=== PATIENT | male | born 1965 | race Caucasian/White ===

== ENCOUNTER → 2018-05-16 15:58 | Outpatient (CLI) | payer OTHER, SELFPAY ==
--- NOTE | 2018-05-16 | DI.RAD.S_ITS ---
PROCEDURE: XR FOOT RT MIN 3V INDICATIONS: PAIN IN RIGHT ANKLE AND RIGHT FOOT TECHNIQUE: 3 views of the foot were acquired. COMPARISON: None. FINDINGS: Bones: No fractures or dislocations. No suspicious bony lesions. Soft tissues: No tibiotalar joint effusion. Achilles tendon appears normal. IMPRESSION: No acute fracture. No osseous lesion. If symptoms and/or clinical suspicion for pathology persist, further assessment with repeat, or advanced imaging (e.g., CT, MRI, or bone scan) may be helpful for further assessment. Dictated by: Julieta Sanchez M.D. on 05/16/2018 at 16:35 Approved by: Julieta Sanchez M.D. on 05/16/2018 at 16:36
--- NOTE | 2018-05-16 | DI.RAD.S_ITS ---
PROCEDURE: XR ANKLE RT MIN 3V INDICATIONS: PAIN IN RIGHT ANKLE AND RIGHT FOOT TECHNIQUE: 3 views of the ankle were acquired. COMPARISON: None. FINDINGS: Bones: No fractures or dislocations. Ankle mortise is normally aligned. No suspicious bony lesions. Soft tissues: No tibiotalar joint effusion. Achilles tendon appears normal. IMPRESSION: No acute fracture. No osseous lesion. If symptoms and/or clinical suspicion for pathology persist, further assessment with repeat, or advanced imaging (e.g., CT, MRI, or bone scan) may be helpful for further assessment. Dictated by: Julieta Sanchez M.D. on 05/16/2018 at 16:35 Approved by: Julieta Sanchez M.D. on 05/16/2018 at 16:35
== END ==
PROVIDERS: Family Provider Internal Medicine; Visit Provider Internal Medicine
DX: M25.571 Pain in right ankle and joints of right foot (principal)
CPT/HCPCS: 73610; 73630

== ENCOUNTER → 2018-05-23 14:31 | Outpatient (CLI) | payer OTHER, SELFPAY ==
--- NOTE | 2018-05-23 | DI.CT.S_ITS ---
PROCEDURE: CT LE RT WO CON INDICATIONS: RIGHT ANKLE PAIN TECHNIQUE: Noncontrast 1-1.5 mm axial sections acquired from above the tibiotalar joint to the bottom of the calcaneus, with coronal and sagittal reformats. COMPARISON: [facility], CR, XR FOOT RT MIN 3V, 05/16/2018, 15:44. FINDINGS: Image quality: Excellent. Small sub-5 mm calcific densities visualized between the cuboid and navicular image 201 series 2, image 174 series 4 raising the possibility of small cortical fracture fragments although the exact donor site it is unclear. Elsewhere, no acute fracture or malalignment is seen. There is probable subcentimeter intraosseous cystic change within the midfoot, degenerative. The talar dome is grossly intact. Mild spurring of the tibiotalar joint. The ankle mortise is maintained. Circumferential hindfoot subcutaneous edema. Chronic corticated ossicle projecting along the medial hindfoot image 196 series 2 Scattered vascular calcifications. IMPRESSION: Sub-5 mm calcific densities as described above in the hindfoot between the head of the cuboid navicular articulation raising the possibility of small fracture fragments however exact donor site is not identified, and these are technically age-indeterminate, potentially degenerative/chronic. Please correlate clinically. If the patient's symptoms do not improve and diagnostic uncertainty persists, recommend further evaluation with noncontrast MRI for soft tissue assessment or occult fracture. Dictated by: Grant Mina M.D. on 05/23/2018 at 15:55 Approved by: Grant Mina M.D. on 05/23/2018 at 16:04
== END ==
PROVIDERS: PCP Internal Medicine; Visit Provider Internal Medicine
DX: M25.571 Pain in right ankle and joints of right foot (principal)
CPT/HCPCS: 73700

== ENCOUNTER → 2018-09-10 11:08 | Outpatient (CLI) | payer OTHER, SELFPAY ==
[2018-09-10 12:27] LABS: Uric Acid 8.9 mg/dL (3.5-8.5)
[2018-09-10 13:02] LABS: Thyroid Stimulating Hormone < 0.02 uIU/mL (0.47-4.68)
== END ==
PROVIDERS: PCP Internal Medicine; Visit Provider Internal Medicine
DX: E03.9 Hypothyroidism, unspecified (principal); M10.9 Gout, unspecified
CPT/HCPCS: 36415; 84443; 84550

== ENCOUNTER → 2019-06-09 09:46 | Outpatient (CLI) | payer OTHER, SELFPAY ==
[2019-06-09 10:30] LABS: Cholesterol 196 mg/dL (140-199); Glucose 113 mg/dL (70-100); HDL Cholesterol 29 mg/dL (40-60); LDL Cholesterol Calculated 97 mg/dL (<100); Triglycerides 350 mg/dL (35-150); Uric Acid 7.8 mg/dL (3.5-8.5)
[2019-06-09 10:55] LABS: Prostate Specific Antigen 0.605 ng/mL (0.10-4.00)
[2019-06-09 11:12] LABS: Thyroid Stimulating Hormone < 0.02 uIU/mL (0.47-4.68)
== END ==
PROVIDERS: PCP Internal Medicine; Visit Provider Internal Medicine
DX: Z00.00 Encounter for general adult medical examination without abnormal findings (principal); E03.9 Hypothyroidism, unspecified; E78.2 Mixed hyperlipidemia; M10.9 Gout, unspecified
CPT/HCPCS: 36415; 80061; 82947; 84153; 84443; 84550

== ENCOUNTER → 2019-07-02 10:42 | Outpatient (CLI) | payer OTHER, SELFPAY ==
[2019-07-02 12:08] LABS: Thyroid Stimulating Hormone < 0.02 uIU/mL (0.47-4.68)
== END ==
PROVIDERS: PCP Internal Medicine; Visit Provider Internal Medicine
DX: E03.9 Hypothyroidism, unspecified (principal)
CPT/HCPCS: 36415; 84443

== ENCOUNTER → 2019-09-23 14:10 | Outpatient (CLI) | payer OTHER, SELFPAY ==
[2019-09-23 15:44] LABS: T4 Total Thyroxine 8.95 ug/dL (5.5-11.0)
[2019-09-23 15:58] LABS: Thyroid Stimulating Hormone 0.03 uIU/mL (0.47-4.68)
[2019-09-26 15:40] LABS: Thyroid Peroxidase Antibodies 145 IU/mL (< 9)
== END ==
PROVIDERS: PCP Internal Medicine; Referring Provider Internal Medicine; Visit Provider Internal Medicine
DX: E03.9 Hypothyroidism, unspecified (principal)
CPT/HCPCS: 36415; 84436; 84443; 86376

== ENCOUNTER → 2020-06-21 19:28 | Outpatient (ROUT) | payer OTHER, SELFPAY ==
[2020-06-21 19:50] LABS: HEMOLYSIS < 15 (0-50)
[2020-06-21 19:52] LABS: Triglycerides 1234 mg/dL (35-150)
[2020-06-21 20:13] LABS: Prostate Specific Antigen 0.999 ng/mL (0.10-4.00)
[2020-06-21 20:14] LABS: TSH w/ Reflex to FT4 2.74 uIU/mL (0.47-4.68)
[2020-06-21 20:42] LABS: Aspartate Aminotransferase 51 IU/L (17-59); BUN Creatinine Ratio 19.5 (6-22); Blood Urea Nitrogen 17 mg/dL (9-20); Calcium 9.7 mg/dL (8.4-10.2); Carbon Dioxide 25 mmol/L (22-32); Chloride 107 mmol/L (98-107); Cholesterol 266 mg/dL (140-199); Estimated Glomerular Filt Rate > 60.0 mL/min (>60); Glucose 101 mg/dL (70-100); HDL Cholesterol 31 mg/dL (40-60); Potassium 4.3 mmol/L (3.4-5.1); Sodium 139 mmol/L (137-145); Uric Acid 6.5 mg/dL (3.5-8.5)
== END ==
PROVIDERS: PCP Internal Medicine; Visit Provider Internal Medicine
DX: Z00.00 Encounter for general adult medical examination without abnormal findings (principal); E03.9 Hypothyroidism, unspecified; E78.2 Mixed hyperlipidemia
CPT/HCPCS: 80048; 80061; 84153; 84443; 84450; 84550

== ENCOUNTER → 2022-09-06 09:14 | Outpatient (CLI) | payer OTHER, SELFPAY ==
[2022-09-06 10:17] LABS: Add Manual Diff / Slide Review NO; Basophils Absolute Auto 0 /uL (0-100); Basophils Percent Auto 0.7 % (0-2); Eosinophils Absolute Auto 100 /uL (0-450); Eosinophils Percent Auto 2.7 % (2-4); Hematocrit 46.8 % (41-53); Hemoglobin 15.6 g/dL (13.5-17.5); Lymphocytes Absolute Auto 2300 /uL (1100-4500); Lymphocytes Percent Auto 42.4 % (25-40); Mean Corpuscular HGB Conc 33.4 % (30-36); Mean Corpuscular Hemoglobin 29.2 PG (26-34); Mean Corpuscular Volume 87.5 fL (80-100); Monocytes Absolute Auto 400 /uL (0-900); Monocytes Percent Auto 7.9 % (3-14); Neutrophils Absolute Auto 2500 /uL (1500-7000); Neutrophils Percent Auto 46.3 % (50-75); Platelet Count 288 X10^3/uL (150-400); Red Blood Cell Count 5.35 X10^6/uL (4.5-5.9); Red Cell Distribution Width 13.2 % (11.6-14.8); White Blood Cell Count 5.4 X10^3/uL (4.5-11.0)
[2022-09-06 10:48] LABS: Alanine Aminotransferase 77 IU/L (<50); Albumin 4.3 g/dL (3.5-5.0); Albumin Globulin Ratio 1.1 (1.0-2.8); Alkaline Phosphatase 115 U/L (38-126); Aspartate Aminotransferase 51 IU/L (17-59); BUN Creatinine Ratio 30.3 (6-22); Bilirubin Total 0.5 mg/dL (0.2-1.3); Blood Urea Nitrogen 23 mg/dL (9-20); Calcium 8.7 mg/dL (8.4-10.2); Carbon Dioxide 26 mmol/L (22-32); Chloride 106 mmol/L (98-107); Cholesterol 218 mg/dL (140-199); Estimated Glomerular Filt Rate > 60 mL/min (>60); Globulin 3.8 g/dL (1.7-4.1); Glucose 109 mg/dL (70-100); HDL Cholesterol 24 mg/dL (40-60); HEMOLYSIS 15 (0-50); Sodium 142 mmol/L (137-145); Total Protein 8.1 g/dL (6.3-8.2)
[2022-09-06 10:59] LABS: Triglycerides 632 mg/dL (35-150)
[2022-09-06 11:16] LABS: Prostate Specific Antigen Scrn 0.572 ng/mL (0.1-4.0)
[2022-09-06 11:18] LABS: TSH w/ Reflex to FT4 0.44 uIU/mL (0.47-4.68)
[2022-09-06 11:44] LABS: Free T4, Direct Thyroxine 1.43 ng/dL (0.78-2.19)
== END ==
PROVIDERS: PCP Family Medicine; Referring Provider Family Medicine; Visit Provider Family Medicine
DX: E03.8 Other specified hypothyroidism (principal); E06.3 Autoimmune thyroiditis; E78.2 Mixed hyperlipidemia; G47.33 Obstructive sleep apnea (adult) (pediatric); Z12.5 Encounter for screening for malignant neoplasm of prostate
CPT/HCPCS: 36415; 80053; 80061; 84439; 84443; 85025; G0103

== ENCOUNTER → 2022-12-28 09:23 | Outpatient (CLI) | payer OTHER, SELFPAY ==
[2022-12-28 10:19] LABS: Alanine Aminotransferase 50 IU/L (<50); Albumin 4.2 g/dL (3.5-5.0); Albumin Globulin Ratio 1.4 (1.0-2.8); Alkaline Phosphatase 87 U/L (38-126); Aspartate Aminotransferase 38 IU/L (17-59); BUN Creatinine Ratio 23.2 (6-22); Bilirubin Total 0.8 mg/dL (0.2-1.3); Blood Urea Nitrogen 19 mg/dL (9-20); Carbon Dioxide 27 mmol/L (22-32); Chloride 105 mmol/L (98-107); Cholesterol 153 mg/dL (140-199); Estimated Glomerular Filt Rate > 60 mL/min (>60); Globulin 3.1 g/dL (1.7-4.1); Glucose 111 mg/dL (70-100); HDL Cholesterol 29 mg/dL (40-60); HEMOLYSIS < 15 (0-50); LDL Cholesterol Calculated 65 mg/dL (<100); Potassium 4.1 mmol/L (3.4-5.1); Sodium 140 mmol/L (137-145); Total Protein 7.3 g/dL (6.3-8.2); Triglycerides 293 mg/dL (35-150)
[2022-12-28 10:43] LABS: TSH w/ Reflex to FT4 0.02 uIU/mL (0.47-4.68)
[2022-12-28 12:50] LABS: Free T4, Direct Thyroxine 1.75 ng/dL (0.78-2.19)
[2022-12-29 03:43] LABS: Labcorp Hemoglobin (Hb) A1c 5.9 % (4.8-5.6)
== END ==
PROVIDERS: PCP Family Medicine; Referring Provider Family Medicine; Visit Provider Family Medicine
DX: E03.8 Other specified hypothyroidism (principal); E06.3 Autoimmune thyroiditis; E78.2 Mixed hyperlipidemia; R73.9 Hyperglycemia, unspecified
CPT/HCPCS: 36415; 80053; 80061; 83036; 84439; 84443

== ENCOUNTER 2023-03-20 08:04 | Day surgery (SDC) | payer OTHER, SELFPAY ==
[2023-03-20] VITALS (7 sets, daily range): BP systolic 102–139; BP diastolic 71–92; PULSE 60–101; RESP 14–17; TEMP 36–36.1; O2SAT 93–98; BMI 31.1
--- NOTE | 2023-03-20 | PATH_ITS ---
[facility] Accession Number: [id number] No. of containers..01 Tissue . 01 Material submitted: . colon - DESCENDING POLYP . 01 Diagnosis: Descending Colon, Polyp: Tubular adenoma. [facility] 03/30/2023 1332 Local . 01 Electronically signed: . Linda Morales MD, Pathologist NPI- [id number] . 01 Gross description: . DESCENDING POLYP: Received in formalin is 1 fragment(s) of green, soft tissue measuring 0.5 x 0.4 x 0.3 cm submitted entirely in 1 cassette(s) /AAY 03/22/2023 1307 Local . 01 Pathologist provided ICD-10: D12.6 . 01 CPT . 216453 Specimen Comment: A courtesy copy of this report has been sent to [phone] Performed at: 01 [facility] [address] [place] [address], [place], [place] [id number] MD Otis Haley MD Phone: [phone]
[2023-03-20] MEDS: LACTATED RINGERS 1,000 ML 200 ML IV (08:39)
--- NOTE | 2023-03-20 09:21 | PM.HP.1 ---
History of Present Illness History of Present Illness Date Patient Seen: 03/20/23 Time Patient Seen: 09:21 Chief complaint: Screening Colonoscopy Narrative: 58-year-old man here for a screening colonoscopy. Last colonoscopy 7 years ago significant for benign polyps. No family history of intestinal malignancy. No abdominal pain unintentional weight loss blood per rectum. [facility] Medical History Chicken pox Foot fracture, right (~2018) Gout (~2018) Hyperlipidemia Hypothyroidism (~1999) Migraines Obstructive sleep apnea Sleep apnea (~2014) Wears glasses Surgical History Anesthesia History of appendectomy (~1980) History of vein stripping (~2014) Family History Father Diabetes mellitus History of heart disease Mother Hyperlipidemia History of heart disease Brother Mental health problem Brother Mental health problem Depression Sister Mycosis fungoides Cancer Sister Depression Mental health problem Grandmother Congestive heart failure Grandmother Diabetes mellitus Social History household members: spouse Smoking Status: Never smoker alcohol intake: current Meds Home Medications and Allergies Home Medications Medication Instructions Recorded Confirmed Type Airsense 11 CPAP #1 ea 07/04/22 01/09/23 History allopurinol 100 mg tablet 100 mg PO DAILY #90 tabs 01/09/23 03/20/23 Rx metformin 500 mg tablet 1,000 mg PO BIDWMEAL #180 tabs 01/09/23 03/20/23 Rx phentermine 15 mg capsule 15 mg PO DAILY #60 caps 01/09/23 03/20/23 Rx rosuvastatin 5 mg tablet (Crestor) 5 mg PO DAILY #90 tabs 01/09/23 03/20/23 Rx levothyroxine 137 mcg tablet 137 mcg PO DAILY #90 tabs 01/15/23 03/20/23 Rx Allergies Allergy/AdvReac Type Severity Reaction Status Date / Time No Known Drug Allergies Allergy Verified 03/20/23 08:20 Exam Vital Signs (past 8 hours): - 03/20/23 08:28 Temperature 96.8 F L Pulse Rate 101 H Respiratory Rate 17 Blood Pressure 139/92 H Pulse Oximetry 96 Oxygen Delivery Method Room Air Oxygen Delivery Method Room Air Narrative Exam Narrative: General adult man alert oriented no acute distress Chest nonlabored respiration Abdomen soft nontender nondistended Assessment & Plan Assessment and plan (1) Personal history of colonic polyps: Status: Acute Assessment & Plan narrative: The patient requires colorectal screening and colonoscopy is recommended. Technical details were discussed. Risks, benefits, alternatives explained. Risks including but not limited to myocardial infarction, aspiration, bleeding, pain, missed lesion, incomplete examination, need for further radiographic studies, colonic perforation, and need for major abdominal surgery were discussed. All questions were answered to their satisfaction, and they are in agreement with this plan.
--- NOTE | 2023-03-20 09:26 | PM.OP.COLON ---
Operative Date/Time/Diagnoses Date of procedure: 03/20/23 Time of procedure: 09:26 Pre-op diagnosis: Personal history of colonic polyps Post-op diagnosis: other (Colonic polyp x1) Procedure & Clinicians Study performed: Colonoscopy and polypectomy Same procedure as scheduled: Yes Indications: Personal history of colonic polyps, colorectal screening Surgeon: Dennis Campoverde Procedure Notes Procedure in detail: The history and physical was performed/updated and the patient is ASA class is 2. The procedure was discussed in detail with the patient. Potential risks complications including infection, bleeding, missed diagnosis, perforation, need for surgery, and were explained. Their questions were answered and informed consent was obtained. Patient was brought to the procedure room and placed standard monitoring equipment. The patient's vital signs were monitored continuously throughout the entire procedure. Prior to starting time-out was performed. The patient was placed in the left lateral recumbent position. Procedural sedation was administered by anesthesia. Examination began with a thorough inspection of the perianal area there was no evidence of fissures, fistulae, external hemorrhoids or cutaneous malignancy. The colonoscopy scope was then placed into the anal canal and was advanced to the cecum, which was identified by the ileocecal valve, the appendiceal orifice and the confluence of the taenia. The scope was then slowly withdrawn examining colon thoroughly in all directions, irrigating it of any residual stool. Descending colon-5 mm polyp removed with biopsy forceps. Mild diverticulosis The patient tolerated the procedure well. They will be discharged once criteria are met. The prep was of good/excellent quality. The withdrawl time was 7 minutes. Specimen(s): other (Descending colon polyp) Impression: Colonic polyp x1 Post-procedure Recommendations: High fiber diet Plan for aftercare: Follow-up dependent on pathology findings. Likely 5 years Disposition: same day surgery
== END 2023-03-20 10:26 | disposition home or self-care (01) ==
PROVIDERS: PCP Family Medicine; Referring Provider Surgery; Visit Provider Surgery
PROC: 0DJD8ZZ Inspection of Lower Intestinal Tract, Via Natural or Artificial Opening Endoscopic (ICD-10-PCS; CPT 45378; principal; 2023-03-20 09:15)
DX: Z12.11 Encounter for screening for malignant neoplasm of colon (principal); Z86.010 Personal history of colon polyps; K57.30 Diverticulosis of large intestine without perforation or abscess without bleeding; D12.4 Benign neoplasm of descending colon
CPT/HCPCS: 45380

== ENCOUNTER → 2023-03-26 09:43 | Outpatient (CLI) | payer OTHER, SELFPAY ==
[2023-03-26 11:54] LABS: TSH w/ Reflex to FT4 < 0.02 uIU/mL (0.47-4.68)
[2023-03-26 12:21] LABS: Free T4, Direct Thyroxine 1.81 ng/dL (0.78-2.19)
== END ==
PROVIDERS: PCP Family Medicine; Referring Provider Family Medicine; Visit Provider Family Medicine
DX: E03.9 Hypothyroidism, unspecified (principal); E78.5 Hyperlipidemia, unspecified
CPT/HCPCS: 36415; 84439; 84443

== ENCOUNTER → 2023-06-06 13:55 | Outpatient (CLI) | payer OTHER, SELFPAY ==
[2023-06-06 15:44] LABS: TSH w/ Reflex to FT4 0.18 uIU/mL (0.47-4.68)
[2023-06-06 18:32] LABS: Free T4, Direct Thyroxine 1.25 ng/dL (0.78-2.19)
== END ==
PROVIDERS: PCP Family Medicine; Referring Provider Family Medicine; Visit Provider Family Medicine
DX: E03.8 Other specified hypothyroidism (principal); E06.3 Autoimmune thyroiditis
CPT/HCPCS: 36415; 84439; 84443

== ENCOUNTER → 2023-09-05 09:57 | Outpatient (CLI) | payer OTHER, SELFPAY ==
[2023-09-05 11:19] LABS: Add Manual Diff / Slide Review NO; Basophils Absolute Auto 0 /uL (0-100); Basophils Percent Auto 0.6 % (0-2); Eosinophils Absolute Auto 200 /uL (0-450); Eosinophils Percent Auto 3.2 % (2-4); Hematocrit 44.3 % (41-53); Hemoglobin 15.1 g/dL (13.5-17.5); Lymphocytes Absolute Auto 2600 /uL (1100-4500); Lymphocytes Percent Auto 43.1 % (25-40); Mean Corpuscular Hemoglobin 29.6 PG (26-34); Mean Corpuscular Volume 87.2 fL (80-100); Monocytes Absolute Auto 400 /uL (0-900); Neutrophils Absolute Auto 2800 /uL (1500-7000); Neutrophils Percent Auto 46.1 % (50-75); Platelet Count 275 X10^3/uL (150-400); Red Blood Cell Count 5.08 X10^6/uL (4.5-5.9); Red Cell Distribution Width 13.4 % (11.6-14.8); White Blood Cell Count 6.1 X10^3/uL (4.5-11.0)
[2023-09-05 11:30] LABS: Hemoglobin A1C% w Est Avg Glu 5.7 % (4.0-6.0)
[2023-09-05 11:52] LABS: Alanine Aminotransferase 40 IU/L (<50); Albumin 4.1 g/dL (3.5-5.0); Albumin Globulin Ratio 1.4 (1.0-2.8); Alkaline Phosphatase 87 U/L (38-126); Aspartate Aminotransferase 37 IU/L (17-59); BUN Creatinine Ratio 21.2 (6-22); Bilirubin Total 0.8 mg/dL (0.2-1.3); Blood Urea Nitrogen 18 mg/dL (9-20); Calcium 9.4 mg/dL (8.4-10.2); Carbon Dioxide 27 mmol/L (22-32); Chloride 103 mmol/L (98-107); Cholesterol 175 mg/dL (140-199); Estimated Glomerular Filt Rate > 60 mL/min (>60); Glucose 102 mg/dL (70-100); HDL Cholesterol 35 mg/dL (40-60); HEMOLYSIS < 15 (0-50); LDL Cholesterol Calculated 71 mg/dL (<100); Potassium 4.6 mmol/L (3.4-5.1); Sodium 137 mmol/L (137-145); Total Protein 7.1 g/dL (6.3-8.2); Triglycerides 344 mg/dL (35-150); Uric Acid 5.5 mg/dL (3.5-8.5)
[2023-09-05 12:11] LABS: TSH w/ Reflex to FT4 1.86 uIU/mL (0.47-4.68)
[2023-09-05 12:13] LABS: Prostate Specific Antigen Scrn 0.532 ng/mL (0.1-4.0)
[2023-09-06 03:58] LABS: Apolipoprotein B 101 mg/dL (<90)
[2023-09-08 03:20] LABS: Lipoprotein (a) 14.2 nmol/L (<75.0)
== END ==
LOC: LAB 09:58
PROVIDERS: PCP Family Medicine; Referring Provider Family Medicine; Visit Provider Family Medicine
DX: E78.5 Hyperlipidemia, unspecified (principal); E03.9 Hypothyroidism, unspecified; R73.9 Hyperglycemia, unspecified; Z12.5 Encounter for screening for malignant neoplasm of prostate; E66.9 Obesity, unspecified; M10.9 Gout, unspecified; R73.03 Prediabetes
CPT/HCPCS: 36415; 80053; 80061; 82172; 83036; 83695; 84443; 84550; 85025; G0103

== ENCOUNTER → 2024-04-12 08:57 | Outpatient (CLI) | payer OTHER, SELFPAY ==
[2024-04-12 10:35] LABS: Hemoglobin A1C% w Est Avg Glu 5.5 % (4.0-6.0)
[2024-04-12 10:56] LABS: Alanine Aminotransferase 27 IU/L (<50); Albumin 3.9 g/dL (3.5-5.0); Albumin Globulin Ratio 1.4 (1.0-2.8); Alkaline Phosphatase 93 U/L (38-126); Aspartate Aminotransferase 30 IU/L (17-59); BUN Creatinine Ratio 18.8 (6-22); Bilirubin Total 0.7 mg/dL (0.2-1.3); Blood Urea Nitrogen 15 mg/dL (9-20); Calcium 9.2 mg/dL (8.4-10.2); Carbon Dioxide 23 mmol/L (22-32); Chloride 105 mmol/L (98-107); Cholesterol 171 mg/dL (140-199); Estimated Glomerular Filt Rate > 60 mL/min (>60); Globulin 2.8 g/dL (1.7-4.1); Glucose 105 mg/dL (70-100); HDL Cholesterol 31 mg/dL (40-60); HEMOLYSIS < 15 (0-50); Potassium 4.3 mmol/L (3.4-5.1); Sodium 136 mmol/L (137-145); Total Protein 6.7 g/dL (6.3-8.2); Triglycerides 494 mg/dL (35-150)
== END ==
PROVIDERS: PCP Family Medicine; Referring Provider Family Medicine; Visit Provider Family Medicine
DX: E78.5 Hyperlipidemia, unspecified (principal); R73.9 Hyperglycemia, unspecified; E78.2 Mixed hyperlipidemia; E03.8 Other specified hypothyroidism; E66.9 Obesity, unspecified
CPT/HCPCS: 36415; 80053; 80061; 83036

== ENCOUNTER → 2024-07-28 16:38 | Outpatient (CLI) | payer OTHER, SELFPAY ==
[2024-07-28 18:13] LABS: Add Manual Diff / Slide Review NO; Basophils Absolute Auto 0 /uL (0-100); Basophils Percent Auto 0.3 % (0-2); Eosinophils Absolute Auto 200 /uL (0-450); Eosinophils Percent Auto 2.5 % (2-4); Hematocrit 45.7 % (41-53); Lymphocytes Absolute Auto 2800 /uL (1100-4500); Lymphocytes Percent Auto 38.1 % (25-40); Mean Corpuscular HGB Conc 32.9 % (30-36); Mean Corpuscular Volume 88.3 fL (80-100); Monocytes Absolute Auto 500 /uL (0-900); Monocytes Percent Auto 6.6 % (3-14); Neutrophils Absolute Auto 3900 /uL (1500-7000); Neutrophils Percent Auto 52.5 % (50-75); Platelet Count 319 X10^3/uL (150-400); Red Blood Cell Count 5.17 X10^6/uL (4.5-5.9); Red Cell Distribution Width 13.6 % (11.6-14.8); White Blood Cell Count 7.4 X10^3/uL (4.5-11.0)
[2024-07-28 18:16] LABS: Hemoglobin A1C% w Est Avg Glu 5.5 % (4.0-6.0)
[2024-07-28 18:19] LABS: Alanine Aminotransferase 35 IU/L (<50); Albumin 4.5 g/dL (3.5-5.0); Albumin Globulin Ratio 1.5 (1.0-2.8); Alkaline Phosphatase 72 U/L (38-126); Aspartate Aminotransferase 39 IU/L (17-59); BUN Creatinine Ratio 15.6 (6-22); Bilirubin Total 0.7 mg/dL (0.2-1.3); Blood Urea Nitrogen 14 mg/dL (9-20); Carbon Dioxide 27 mmol/L (22-32); Chloride 104 mmol/L (98-107); Cholesterol 146 mg/dL (140-199); Estimated Glomerular Filt Rate > 60 mL/min (>60); Glucose 82 mg/dL (70-100); HDL Cholesterol 35 mg/dL (40-60); HEMOLYSIS < 15 (0-50); LDL Cholesterol Calculated 57 mg/dL (<100); Potassium 3.8 mmol/L (3.4-5.1); Sodium 139 mmol/L (137-145); Total Protein 7.5 g/dL (6.3-8.2); Triglycerides 271 mg/dL (35-150); Uric Acid 6.4 mg/dL (3.5-8.5)
[2024-07-28 18:49] LABS: Prostate Specific Antigen Scrn 0.649 ng/mL (0.1-4.0); TSH w/ Reflex to FT4 5.94 uIU/mL (0.47-4.68)
[2024-07-28 20:33] LABS: Free T4, Direct Thyroxine 1.14 ng/dL (0.78-2.19)
[2024-07-30 03:36] LABS: Apolipoprotein B 78 mg/dL (<90)
== END ==
PROVIDERS: PCP Family Medicine; Referring Provider Family Medicine; Visit Provider Family Medicine
DX: Z12.5 Encounter for screening for malignant neoplasm of prostate (principal); E78.1 Pure hyperglyceridemia; R73.9 Hyperglycemia, unspecified; E78.5 Hyperlipidemia, unspecified; E03.9 Hypothyroidism, unspecified; E66.9 Obesity, unspecified; M10.9 Gout, unspecified
CPT/HCPCS: 36415; 80053; 80061; 82172; 83036; 84439; 84443; 84550; 85025; G0103

== ENCOUNTER → 2024-10-25 10:54 | Outpatient (CLI) | payer OTHER, SELFPAY ==
[2024-10-25 12:00] LABS: Alanine Aminotransferase 25 IU/L (<50); Albumin 4.5 g/dL (3.5-5.0); Albumin Globulin Ratio 1.7 (1.0-2.8); Alkaline Phosphatase 79 U/L (38-126); Aspartate Aminotransferase 30 IU/L (17-59); BUN Creatinine Ratio 15.6 (6-22); Bilirubin Total 0.7 mg/dL (0.2-1.3); Blood Urea Nitrogen 15 mg/dL (9-20); Calcium 9.3 mg/dL (8.4-10.2); Carbon Dioxide 26 mmol/L (22-32); Chloride 103 mmol/L (98-107); Estimated Glomerular Filt Rate > 60 mL/min (>60); Globulin 2.7 g/dL (1.7-4.1); Glucose 96 mg/dL (70-100); HEMOLYSIS < 15 (0-50); Potassium 4.5 mmol/L (3.4-5.1); Sodium 138 mmol/L (137-145); Total Protein 7.2 g/dL (6.3-8.2)
[2024-10-25 12:30] LABS: TSH w/ Reflex to FT4 5.18 uIU/mL (0.47-4.68)
[2024-10-25 12:57] LABS: Free T4, Direct Thyroxine 1.23 ng/dL (0.78-2.19)
== END ==
PROVIDERS: PCP Family Medicine; Referring Provider Family Medicine; Visit Provider Family Medicine
DX: E78.2 Mixed hyperlipidemia (principal); E78.1 Pure hyperglyceridemia; E03.8 Other specified hypothyroidism; E06.3 Autoimmune thyroiditis
CPT/HCPCS: 36415; 80053; 84439; 84443